=== PATIENT | female | born 1995 | race African-American/Black ===

== ENCOUNTER 2021-01-11 18:08 | Emergency (ER) | payer MEDICAID ==
[~2021-01-11] VITALS: Ht 152.4 cm; Wt 60.0 kg
[~2021-01-11 18:08] MED LIST: CLIN300C12
[2021-01-11 18:57] LABS: BASOPHILS % 0.6 % (0.0-2.0); EOSINOPHILS % 3.7 % (0.0-5.0); HEMATOCRIT. 35.9 % (36.0-48.0); HEMOGLOBIN. 12.2 g/dL (12.0-16.0); LYMPHOCYTES % 21.1 % (20.0-50.0); MEAN CORPUSCULAR HEMOGLOBIN 30.1 pg (28.0-32.0); MEAN CORPUSCULAR VOLUME 88.6 fL (81.0-99.0); MEAN PLATELET VOLUME 7.9 fl (7.4-10.4); MONOCYTES % 10.3 % (2.0-8.0); NEUTROPHILS % 64.3 % (40.0-76.0); PLATELET 274 x1000/uL (130-400); RED BLOOD CELL COUNT 4.05 mill/uL (4.2-5.4); RED CELL DISTRIBUTION WIDTH 15.5 % (11.6-14.6)
[2021-01-11 19:02] LABS: CHLORIDE 105 mEq/L (98-107)
[2021-01-11] MEDS ORDERED: MORPHINE SULFATE 4 MG/ML CPJ (NOT FOR IM USE) IV ONE ×2 (19:15→22:30)
[2021-01-11 19:25] LABS: B-HCG QUANTITATIVE 9793 mIU/mL (<3)
[2021-01-11] MEDS ORDERED: POTASSIUM CHLORIDE 20MEQ TABLET SR PO ONE (20:30)
[2021-01-12 01:46] VITALS: BP 104/50
== END 2021-01-12 02:01 | disposition home or self-care (01) ==
LOC: ER 18:08
DX: O00.90 Unspecified ectopic pregnancy without intrauterine pregnancy (principal); Q24.9 Congenital malformation of heart, unspecified; Z88.2 Allergy status to sulfonamides; Z88.8 Allergy status to other drugs, medicaments and biological substances
CPT/HCPCS: 36415; 76830; 76856; 80053; 81025; 84702; 85025; 86850; 86900; 86901; 93005; 96374; 96376; 99285; J2270

== ENCOUNTER 2021-06-02 15:11 | Emergency (ER) | payer MEDICAID ==
[~2021-06-02] VITALS: Ht 162.6 cm; Wt 68.0 kg
[2021-06-02] MEDS ORDERED: ONDANSETRON HCL 4MG/2ML INJ IV STA (16:14)
[2021-06-02] MEDS ORDERED: SODIUM CHLORIDE 0.9% 1,000 ML IV ONE (16:15)
[2021-06-02 16:28] LABS: BASOPHILS % 0.8 % (0.0-2.0); EOSINOPHILS % 3.2 % (0.0-5.0); HEMATOCRIT. 32.3 % (36.0-48.0); HEMOGLOBIN. 10.5 g/dL (12.0-16.0); LYMPHOCYTES % 34.5 % (20.0-50.0); MEAN CORPUSCULAR HEMOGLOBIN 26.8 pg (28.0-32.0); MEAN CORPUSCULAR VOLUME 82.1 fL (81.0-99.0); MEAN PLATELET VOLUME 7.4 fl (7.4-10.4); MONOCYTES % 13.3 % (2.0-8.0); NEUTROPHILS % 48.2 % (40.0-76.0); PLATELET 341 x1000/uL (130-400); RED BLOOD CELL COUNT 3.93 mill/uL (4.2-5.4); RED CELL DISTRIBUTION WIDTH 14.3 % (11.6-14.6)
[2021-06-02 16:30] LABS: CLARITY URINE CLOUDY (CLEAR); COLOR URINE YELLOW (YELLOW); KETONES URINE 1+ (NEGATIVE); LEUKOCYTE ESTERASE URINE TRACE (NEGATIVE); NITRITE URINE NEGATIVE (NEGATIVE); OCCULT BLOOD URINE 3+ (NEGATIVE); PH URINE 5.5 (4.5-8.0); PROTEIN URINE 1+ (NEGATIVE); SPECIFIC GRAVITY URINE 1.025 (1.005-1.030)
[2021-06-02 16:34] LABS: CHLORIDE 108 mEq/L (98-107)
[2021-06-02] MEDS ORDERED: POTASSIUM CHLORIDE 20MEQ TABLET SR PO ONE (17:00)
[2021-06-02] MEDS ORDERED: ONDA4TAB5 MT (17:29)
[2021-06-02 17:51] VITALS: BP 140/83
== END 2021-06-02 17:52 | disposition home or self-care (01) ==
LOC: ER 15:34
DX: B34.9 Viral infection, unspecified (principal); R11.2 Nausea with vomiting, unspecified; E87.6 Hypokalemia; Z88.2 Allergy status to sulfonamides; Z20.822 Contact with and (suspected) exposure to COVID-19
CPT/HCPCS: 36415; 71045; 80053; 81003; 81025; 83690; 85025; 96374; 99284; C9803; J2405; J7030; U0003; U0005

== ENCOUNTER 2022-07-19 13:35 | Emergency (ER) | payer MEDICAID ==
[~2022-07-19] VITALS: Ht 142.2 cm; Wt 53.0 kg
[~2022-07-19 13:35] MED LIST changes: +CLIN-194; -CLIN300C12; +ONDA4TAB5 MT
[2022-07-19 13:43] VITALS: BP 164/61
[2022-07-19] MEDS ORDERED: ACET10DR15 LEFT EAR (16:12)
== END 2022-07-19 16:18 | disposition home or self-care (01) ==
LOC: ER 13:35
DX: H61.22 Impacted cerumen, left ear (principal); H60.92 Unspecified otitis externa, left ear; Z88.2 Allergy status to sulfonamides; Z88.8 Allergy status to other drugs, medicaments and biological substances
CPT/HCPCS: 81025; 99282